=== PATIENT | male | born 1975 | race Caucasian/White ===

== ENCOUNTER 2023-05-17 16:01 | Emergency (ER) | payer OTHER ==
[~2023-05-17] VITALS: Ht 180.3 cm; Wt 97.5 kg
[~2023-05-17 16:01] MED LIST: OXYACE5T PO; TAMS.4ER PO
[2023-05-17 16:14] VITALS: BP 119/77
[2023-05-17] MEDS ORDERED: Cleocin HCl150 MG PO (17:05)
[2023-05-17] MEDS ORDERED: Vibramycin100 MG PO (17:05)
[2023-05-17] MEDS ORDERED: ESCI20 PO (17:14)
== END 2023-05-17 18:04 | disposition home or self-care (01) ==
LOC: ER 16:01
DX: S51.852A Open bite of left forearm, initial encounter (principal); S51.851A Open bite of right forearm, initial encounter; W54.0XXA Bitten by dog, initial encounter; Z88.2 Allergy status to sulfonamides; Z88.5 Allergy status to narcotic agent; Z79.899 Other long term (current) drug therapy
CPT/HCPCS: 12011; 96372-59; 99283-25; A9270; J1885